=== PATIENT | male | born 1970 | race Caucasian/White ===

== ENCOUNTER 2018-08-11 14:04 | Emergency (ER) | payer BC, OTHER ==
--- NOTE | 2018-08-11 14:39 | ED ---
Chest Pain HPI - General Chief Complaint: Chest Pain Stated Complaint: Calf pain/Blood clots Time Seen by Provider: 08/11/18 14:37 Source: patient, RN notes reviewed, old records reviewed Mode of arrival: ambulatory Limitations: no limitations - History of Present Illness Initial Comments: This is a 48-year-old male. Recent medical history coming with left lower extremity pain. Patient states he has history of recent DVT and multiple blood thinners, patient also has recent history of CABG. Denies any chest pain currently no shortness of breath. Patient coming in for left lower extremity pain concern that he has recurrence of DVT or worse. MD Complaint: chest pain (Patient is without current chest pain), other ( Patient does have left lower Shorty pain and tingling that occurred twice prior to arrival) Onset: during rest Pain Radiation: none Severity: mild Quality: tightness Consistency: intermittent, now resolved Improves With: nothing Worsens With: nothing Treatments Prior to Arrival: none - Related Data Home Medications Medication Instructions Recorded Confirmed Multivitamin [Men's Multi-Vitamin] 1 tab PO DAILY 01/08/14 08/11/18 Metoprolol Tartrate [Lopressor] 12.5 mg PO BID 01/09/14 08/11/18 Apixaban [Eliquis] 5 mg PO BID 08/11/18 08/11/18 Ascorbic Acid [Vitamin C] 500 mg PO DAILY 08/11/18 08/11/18 Evolocumab [Repatha Syringe] 140 mg SQ Q14D 08/11/18 08/11/18 Folic Acid 1 mg PO DAILY@1200 08/11/18 08/11/18 Glucosamine-Chondr 500-400Mg 1 tab PO DAILY 08/11/18 08/11/18 [place]-3 Fatty Acids/Fish Oil [Fish 1 cap PO BID 08/11/18 08/11/18 Oil 1,000 mg Softgel] Pantoprazole Sodium [Protonix] 40 mg PO DAILY 08/11/18 08/11/18 Ranolazine [Ranexa] 500 mg PO BID 08/11/18 08/11/18 Rosuvastatin Calcium [Crestor] 20 mg PO HS 08/11/18 08/11/18 Sucralfate [Carafate] 1 gm PO AC-TID 08/11/18 08/11/18 Ticagrelor [Brilinta] 90 mg PO BID 08/11/18 08/11/18 amLODIPine [Norvasc] 5 mg PO DAILY 08/11/18 08/11/18 Allergies Allergy/AdvReac Type Severity Reaction Status Date / Time No Known Allergies Allergy Verified 08/11/18 14:45 Review of Systems ROS Statement: Those systems with pertinent positive or pertinent negative responses have been documented in the HPI. ROS Other: All systems not noted in ROS Statement are negative. EKG Findings - EKG Comments: EKG Findings:: EKG shows sinus bradycardia rate of 57 rate 142, QRS 90, QTc 44 Past Medical History Past Medical History: Coronary Artery Disease (CAD), Chest Pain / Angina, Hyperlipidemia, Myocardial Infarction ([place]) Additional Past Medical History / Comment(s): palpatations, Last Myocardial Infarction Date:: 12/2012 History of Any Multi-Drug Resistant Organisms: None Reported Past Surgical History: Coronary Bypass/CABG, Heart Catheterization With Stent Additional Past Surgical History / Comment(s): 12/08/12 CABG, fatty tumor removed rt arm Past Anesthesia/Blood Transfusion Reactions: No Reported Reaction Past Psychological History: No Psychological Hx Reported Smoking Status: Never smoker Past Alcohol Use History: Rare Past Drug Use History: None Reported - Past Family History Father Family Medical History: Coronary Artery Disease (CAD) Mother Family Medical History: Coronary Artery Disease (CAD) General Exam - General Exam Comments Initial Comments: Patient does have good dorsalis pedis and posterior tibialis pulses +2 Limitations: no limitations General appearance: alert, in no apparent distress Head exam: Present: atraumatic, normocephalic, normal inspection Eye exam: Present: normal appearance, PERRL, EOMI. Absent: scleral icterus, conjunctival injection, periorbital swelling ENT exam: Present: normal exam, mucous membranes moist Neck exam: Present: normal inspection. Absent: tenderness, meningismus, lymphadenopathy Respiratory exam: Present: normal lung sounds bilaterally. Absent: respiratory distress, wheezes, rales, rhonchi, stridor Cardiovascular Exam: Present: regular rate, normal rhythm, normal heart sounds. Absent: systolic murmur, diastolic murmur, rubs, gallop, clicks GI/Abdominal exam: Present: soft, normal bowel sounds. Absent: distended, tenderness, guarding, rebound, rigid Extremities exam: Present: normal inspection, full ROM, normal capillary refill. Absent: tenderness, pedal edema, joint swelling, calf tenderness Back exam: Present: normal inspection Neurological exam: Present: alert, oriented X3, CN II-XII intact Psychiatric exam: Present: normal affect, normal mood Skin exam: Present: warm, dry, intact, normal color. Absent: rash Course Vital Signs 08/11/18 08/11/18 08/11/18 14:10 14:58 16:00 Temperature 98.2 F Pulse Rate 58 L 54 L 52 L Respiratory 18 16 16 Rate Blood Pressure 136/90 126/80 115/72 O2 Sat by Pulse 97 97 97 Oximetry 08/11/18 17:48 Temperature 98.3 F Pulse Rate 53 L Respiratory 18 Rate Blood Pressure 118/78 O2 Sat by Pulse 97 Oximetry - Reevaluation(s) Reevaluation #1: Medical records reviewed, unable to obtain prior ultrasound from outside facility Reevaluation #2: Patient has not had any new pain, left ankle, calf pain has resolved. Chest Pain MDM - MDM 48 male the ER for evasive left lower Shorty pain, ultrasound negative for DVT. Patient can be discharged home Disposition Clinical Impression: Left leg pain Disposition: HOME SELF-CARE Condition: Good Instructions: Leg Pain (ED) Is patient prescribed a controlled substance at d/c from ED?: No Referrals: Nonstaff,Physician [REFERRING] - 1-2 days
[2018-08-11 15:02] LABS: Basophils # (A) 0.1 k/uL (0-0.2); Basophils % (A) 1 %; Eosinophils # (A) 0.2 k/uL (0-0.7); Eosinophils % (A) 4 %; HCT 43.1 % (39.0-53.0); HGB 14.4 gm/dL (13.0-17.5); Lymphocytes # (A) 2.1 k/uL (1.0-4.8); Lymphocytes % (A) 37 %; MCH 30.7 pg (25.0-35.0); MCHC 33.4 g/dL (31.0-37.0); Mean Platelet Volume 6.4; Monocytes # (A) 0.4 k/uL (0-1.0); Monocytes % (A) 7 %; Neutrophils # (A) 2.7 k/uL (1.3-7.7); Neutrophils % (A) 48 %; Platelet Count 209 k/uL (150-450); RBC 4.69 m/uL (4.30-5.90); RDW 12.6 % (11.5-15.5); WBC 5.5 k/uL (3.8-10.6)
[2018-08-11 15:06] LABS: Albumin 4.2 g/dL (3.5-5.0); Calcium 9.3 mg/dL (8.4-10.2); Potassium 4.6 mmol/L (3.5-5.1); Total Bilirubin 0.6 mg/dL (0.2-1.3); Total Protein 6.9 g/dL (6.3-8.2)
[2018-08-11 15:13] LABS: D-Dimer 0.18 mg/L FEU (<0.60); INR 0.9 (<1.2); Partial Thromboplastin Time 26.1 sec (22.0-30.0); Prothrombin Time 10.2 sec (9.0-12.0)
[2018-08-11 15:18] LABS: Creatine Kinase 105 U/L (55-170)
[2018-08-11 15:31] LABS: Creatine Kinase MB 0.5 ng/mL (0.0-2.4); Troponin I <0.012 ng/mL (0.000-0.034)
--- NOTE | 2018-08-11 15:32 | XR ---
EXAMINATION TYPE: XR chest 2V DATE OF EXAM: 08/11/2018 COMPARISON: Chest x-ray April 19, 2014. HISTORY: Chest pain. TECHNIQUE: Frontal and lateral views of the chest are obtained. FINDINGS: Post-CABG changes with mediastinal clips and sternal wires is redemonstrated. There is no f ocal air space opacity, pleural effusion, or pneumothorax seen. The cardiac silhouette size is withi n normal limits. The osseous structures are intact. IMPRESSION: Post CABG changes without acute pulmonary process. No significant change from prior.
--- NOTE | 2018-08-11 17:20 | US ---
EXAMINATION TYPE: US venous doppler duplex LE BI DATE OF EXAM: 08/11/2018 4:55 PM COMPARISON: NONE CLINICAL HISTORY: Pain. History of DVT right leg 07/20. Patient on blood thinner. Pain bilateral lowe r legs SIDE PERFORMED: Bilateral TECHNIQUE: The lower extremity deep venous system is examined utilizing real time linear array sonog marciano with graded compression, doppler sonography and color-flow sonography. VESSELS IMAGED: External Iliac Vein (EIV) Common Femoral Vein Deep Femoral Vein Greater Saphenous Vein * Femoral Vein Popliteal Vein Small Saphenous Vein * Proximal Calf Veins (* superficial vessels) Right Leg: No evidence of DVT as visualized Left Leg: No evidence of DVT as visualized IMPRESSION: Negative exam. No evidence of deep venous thrombosis in both legs.
[2018-08-11 17:49] VITALS: BP 118/78; PULSE 53; RESP 18; TEMP 98.3
== END 2018-08-11 17:48 | disposition home or self-care (01) ==
LOC: EC 14:04
DX: M79.605 Pain in left leg (principal); R07.9 Chest pain, unspecified; R20.2 Paresthesia of skin; I25.119 Atherosclerotic heart disease of native coronary artery with unspecified angina pectoris; I25.2 Old myocardial infarction; E78.5 Hyperlipidemia, unspecified; Z79.01 Long term (current) use of anticoagulants; Z79.899 Other long term (current) drug therapy; Z95.1 Presence of aortocoronary bypass graft; Z86.718 Personal history of other venous thrombosis and embolism
CPT/HCPCS: 36415; 71046; 80053; 82550; 82553; 83690; 83735; 84484; 85025; 85379; 85610; 85730; 93005; 93970; 99285

== ENCOUNTER 2021-03-04 11:17 | Observation (INO) | payer OTHER ==
[2021-03-04] MEDS ORDERED: NITROGLYCERIN OINT 1 INCH/GM PACKET TOPICAL STA (11:48)
[2021-03-04] MEDS ORDERED: ASPIRIN 81 MG PO STA (11:48)
--- NOTE | 2021-03-04 11:52 | ED ---
General Adult HPI - General Chief complaint: Chest Pain Stated complaint: Chest Pain Time Seen by Provider: 03/04/21 11:25 Source: patient, RN notes reviewed, old records reviewed Mode of arrival: EMS Limitations: no limitations - History of Present Illness Initial comments: Is a 50-year-old male who presents emergency Department stating that he's had a previous heart attack and has high cholesterol. Patient states she also strong family history of heart disease. Patient states he started having chest pain today that radiates to his back which is very similar to the chest pain he was experiencing when he had his first heart attack. Patient states this pain started at work and it was pretty significant at that time he denied any diaphoretic episodes he states he was mildly short of breath but he denied any nausea. Patient states the pain still going on now but much improved. Patient denies any headache patient denies any lightheadedness or dizziness. Patient denies any near syncopal episode. Patient denies any recent fever chills or cough per patient denies any abdominal pain patient with any back pain. Patient denies any nausea vomiting diarrhea. Patient denies any swelling to legs or calf tenderness. Patient states it is always bradycardic but now is on metoprolol also is even more bradycardic than normal which for him is not been a problem. - Related Data Home Medications Medication Instructions Recorded Confirmed Multivitamin [Men's Multi-Vitamin] 1 tab PO DAILY 01/08/14 03/04/21 Metoprolol Tartrate [Lopressor] 12.5 mg PO BID 01/09/14 03/04/21 Apixaban [Eliquis] 5 mg PO BID 08/11/18 03/04/21 Evolocumab [Repatha Syringe] 140 mg SQ Q14D 08/11/18 03/04/21 Glucosamine-Chondr 500-400Mg 1 tab PO DAILY 08/11/18 03/04/21 amLODIPine [Norvasc] 5 mg PO DAILY 08/11/18 03/04/21 Aspirin EC [Ecotrin Low Dose] 81 mg PO HS 03/04/21 03/04/21 Cetirizine HCl [Zyrtec] 10 mg PO Q48H 03/04/21 03/04/21 Clopidogrel Bisulfate [Plavix] 75 mg PO DAILY 03/04/21 03/04/21 Nitroglycerin Sl Tabs [Nitrostat] 0.4 mg SL Q5M PRN 03/04/21 03/04/21 Omeprazole 40 mg PO DAILY 03/04/21 03/04/21 Ranolazine [Ranexa] 1,000 mg PO BID 03/04/21 03/04/21 Allergies Allergy/AdvReac Type Severity Reaction Status Date / Time No Known Allergies Allergy Verified 03/04/21 14:04 Review of Systems ROS Statement: Those systems with pertinent positive or pertinent negative responses have been documented in the HPI. ROS Other: All systems not noted in ROS Statement are negative. Past Medical History Past Medical History: Coronary Artery Disease (CAD), Chest Pain / Angina, Hyperlipidemia, Myocardial Infarction ([place]) Additional Past Medical History / Comment(s): palpatations, Last Myocardial Infarction Date:: 12/2012 History of Any Multi-Drug Resistant Organisms: None Reported Past Surgical History: Coronary Bypass/CABG, Heart Catheterization With Stent Additional Past Surgical History / Comment(s): 12/08/12 CABG, fatty tumor removed rt arm Past Anesthesia/Blood Transfusion Reactions: No Reported Reaction Past Psychological History: No Psychological Hx Reported Smoking Status: Never smoker Past Alcohol Use History: Rare Past Drug Use History: None Reported - Past Family History Father Family Medical History: Coronary Artery Disease (CAD) Mother Family Medical History: Coronary Artery Disease (CAD) General Exam - General Exam Comments Initial Comments: GENERAL: Patient is well-developed and well-nourished. Patient is nontoxic and well- hydrated and is in mild distress. ENT: Neck is soft and supple. No significant lymphadenopathy is noted. Oropharynx is clear. Moist mucous membranes. Neck has full range of motion without elici ting any pain. EYES: The sclera were anicteric and conjunctiva were pink and moist. Extraocular m ovements were intact and pupils were equal round and reactive to light. Eyelids were unremarkable. PULMONARY: Unlabored respirations. Good breath sounds bilaterally. No audible rales rhonchi or wheezing was noted. CARDIOVASCULAR: There is a regular rate and rhythm without any murmurs gallops or rubs. ABDOMEN: Soft and nontender with normal bowel sounds. SKIN: Skin is clear with no lesions or rashes and otherwise unremarkable. NEUROLOGIC: Patient is alert and oriented x3. Cranial nerves II through XII are grossly intact. Motor and sensory are also intact. Normal speech, volume and content. Symmetrical smile. MUSCULOSKELETAL: Normal extremities with adequate strength and full range of motion. No lower extremity swelling or edema. No calf tenderness. LYMPHATICS: No significant lymphadenopathy is noted PSYCHIATRIC: Normal psychiatric evaluation. 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 Patient's EKG shows no ST segment elevation or depression. Patient got aspirin and Nitropaste to the emergency department he stated that the Nitropaste seem to have taken away the rest of the chest pain. Because this patient's unstable angina picture I started patient on heparin. I spoke with the [facility] hospitalist and spoke and they agreed to admit the patient admitted the patient I continue aspirin heparin Nitropaste on the floor. I consult cardiology. - Lab Data Result diagrams: 03/04/21 12:00 03/04/21 12:00 Lab Results 03/04/21 03/04/21 03/04/21 Range/Units 12:00 12:00 12:00 WBC 5.5 (3.8-10.6) k/uL RBC 4.46 (4.30-5.90) m/uL Hgb 14.8 (13.0-17.5) gm/dL Hct 42.4 (39.0-53.0) % MCV 95.1 (80.0-100.0) fL MCH 33.3 (25.0-35.0) pg MCHC 35.0 (31.0-37.0) g/dL RDW 12.6 (11.5-15.5) % Plt Count 180 (150-450) k/uL MPV 7.3 Neutrophils % 53 % Lymphocytes % 34 % Monocytes % 7 % Eosinophils % 3 % Basophils % 1 % Neutrophils # 2.9 (1.3-7.7) k/uL Lymphocytes # 1.9 (1.0-4.8) k/uL Monocytes # 0.4 (0-1.0) k/uL Eosinophils # 0.2 (0-0.7) k/uL Basophils # 0.0 (0-0.2) k/uL PT 11.2 (9.0-12.0) sec INR 1.1 (<1.2) APTT 26.6 (22.0-30.0) sec Sodium 137 (137-145) mmol/L Potassium 4.2 (3.5-5.1) mmol/L Chloride 107 (98-107) mmol/L Carbon Dioxide 22 (22-30) mmol/L Anion Gap 8 mmol/L BUN 14 (9-20) mg/dL Creatinine 1.09 (0.66-1.25) mg/dL Est GFR (CKD-EPI)AfAm >90 (>60 ml/min/1.73 sqM) Est GFR (CKD-EPI)NonAf 79 (>60 ml/min/1.73 sqM) Glucose 108 H (74-99) mg/dL Calcium 9.3 (8.4-10.2) mg/dL Magnesium 1.8 (1.6-2.3) mg/dL Total Bilirubin 0.3 (0.2-1.3) mg/dL AST 23 (17-59) U/L ALT 19 (4-49) U/L Alkaline Phosphatase 53 (38-126) U/L Troponin I (0.000-0.034) ng/mL Total Protein 6.4 (6.3-8.2) g/dL Albumin 3.8 (3.5-5.0) g/dL 03/04/21 Range/Units 12:00 WBC (3.8-10.6) k/uL RBC (4.30-5.90) m/uL Hgb (13.0-17.5) gm/dL Hct (39.0-53.0) % MCV (80.0-100.0) fL MCH (25.0-35.0) pg MCHC (31.0-37.0) g/dL RDW (11.5-15.5) % Plt Count (150-450) k/uL MPV Neutrophils % % Lymphocytes % % Monocytes % % Eosinophils % % Basophils % % Neutrophils # (1.3-7.7) k/uL Lymphocytes # (1.0-4.8) k/uL Monocytes # (0-1.0) k/uL Eosinophils # (0-0.7) k/uL Basophils # (0-0.2) k/uL PT (9.0-12.0) sec INR (<1.2) APTT (22.0-30.0) sec Sodium (137-145) mmol/L Potassium (3.5-5.1) mmol/L Chloride (98-107) mmol/L Carbon Dioxide (22-30) mmol/L Anion Gap mmol/L BUN (9-20) mg/dL Creatinine (0.66-1.25) mg/dL Est GFR (CKD-EPI)AfAm (>60 ml/min/1.73 sqM) Est GFR (CKD-EPI)NonAf (>60 ml/min/1.73 sqM) Glucose (74-99) mg/dL Calcium (8.4-10.2) mg/dL Magnesium (1.6-2.3) mg/dL Total Bilirubin (0.2-1.3) mg/dL AST (17-59) U/L ALT (4-49) U/L Alkaline Phosphatase (38-126) U/L Troponin I <0.012 (0.000-0.034) ng/mL Total Protein (6.3-8.2) g/dL Albumin (3.5-5.0) g/dL Critical Care Time Critical Care Time: Yes Total Critical Care Time: 35 Disposition Clinical Impression: Unstable angina pectoris Disposition: ADMITTED IP TO THIS [facility] Referrals: Nonstaff,Physician [REFERRING] - 1-2 days Time of Disposition: 14:11
[2021-03-04] MEDS ORDERED: IBUPROFEN 600 MG TAB PO STA (12:01)
[2021-03-04] MEDS ORDERED: ACETAMINOPHEN TAB 500 MG TAB PO STA (12:01)
[2021-03-04 12:13] LABS: Basophils % (A) 1 %; Eosinophils # (A) 0.2 k/uL (0-0.7); Eosinophils % (A) 3 %; HCT 42.4 % (39.0-53.0); HGB 14.8 gm/dL (13.0-17.5); Lymphocytes # (A) 1.9 k/uL (1.0-4.8); Lymphocytes % (A) 34 %; MCH 33.3 pg (25.0-35.0); MCV 95.1 fL (80.0-100.0); Mean Platelet Volume 7.3; Monocytes # (A) 0.4 k/uL (0-1.0); Monocytes % (A) 7 %; Neutrophils # (A) 2.9 k/uL (1.3-7.7); Neutrophils % (A) 53 %; Platelet Count 180 k/uL (150-450); RBC 4.46 m/uL (4.30-5.90); RDW 12.6 % (11.5-15.5); WBC 5.5 k/uL (3.8-10.6)
[2021-03-04 12:22] LABS: ALT 19 U/L (4-49); AST 23 U/L (17-59); African American GFR (CKD) >90 (>60 ml/min/1.73 sqM); Albumin 3.8 g/dL (3.5-5.0); Alkaline Phosphatase 53 U/L (38-126); Anion Gap 8 mmol/L; Blood Urea Nitrogen 14 mg/dL (9-20); Calcium 9.3 mg/dL (8.4-10.2); Carbon Dioxide 22 mmol/L (22-30); Chloride 107 mmol/L (98-107); Glucose 108 mg/dL (74-99); Magnesium 1.8 mg/dL (1.6-2.3); Non-African American GFR(CKD) 79 (>60 ml/min/1.73 sqM); Potassium 4.2 mmol/L (3.5-5.1); Sodium 137 mmol/L (137-145); Total Bilirubin 0.3 mg/dL (0.2-1.3); Total Protein 6.4 g/dL (6.3-8.2)
[2021-03-04 12:46] LABS: INR 1.1 (<1.2); Partial Thromboplastin Time 26.6 sec (22.0-30.0); Prothrombin Time 11.2 sec (9.0-12.0)
--- NOTE | 2021-03-04 13:57 | XR ---
EXAMINATION TYPE: XR chest 2V DATE OF EXAM: 03/04/2021 COMPARISON: 08/11/2018 HISTORY: 50-year-old male with chest pain TECHNIQUE: PA and lateral views FINDINGS: Median sternotomy wires with postoperative clips in the sternum. A coronary artery stent is noted. Th e cardiomediastinal silhouette, aorta, and pulmonary vasculature are within normal limits. Lungs and pleural spaces are clear. IMPRESSION: No acute cardiopulmonary process.
[2021-03-04] MEDS ORDERED: HEPARIN SODIUM 1,000 UN/ML (10ML VL) IV ONE (14:09)
[2021-03-04] MEDS ORDERED: NITROGLYCERIN SL TABS 0.4 MG TAB SUBLINGUAL PRN (14:13)
--- NOTE | 2021-03-04 14:56 | P.HPIM ---
History of Present Illness This is a pleasant 50 is old male with past medical history for significant coronary artery disease status post CABG and 4 stents, last stent was 1.5 years ago. Hyperlipidemia, his juvenile detention officer is Dr. Phani Mauricio , and his PCP is Dr. Yesenia Mcintosh. 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 He denies any dyspnea, no coughing. No dizziness or sweating. No GI or urinary symptoms. Like no diarrhea or nausea vomiting. No abdominal pain. No dysuria Alcohol or illicit drugs. Occasional drinking Vitas looks stable with temperature 97.4, slightly bradycardic at 46, blood pressure 118/73 EKG showing sinus bradycardia at [address]-T changes Labs including CBC, BMP, liver enzymes and INR are unremarkable. Troponin 1 is negative with less than 0.012. Patient states that he took his medication this morning include an aspirin Emergency room he received aspirin 324 mg 1, ibuprofen, Tylenol, and started on heparin drip Review of Systems CONSTITUTIONAL: No fever, no malaise, no fatigue. HEENT: No recent visual problems or hearing problems. Denied any sore throat. CARDIOVASCULAR: No orthopnea, PND, no palpitations, no syncope. PULMONARY: No shortness of breath, no cough, no hemoptysis. GASTROINTESTINAL: No diarrhea, no nausea, no vomiting, no abdominal pain. Normoactive bowel sounds. NEUROLOGICAL: No headaches, no weakness, no numbness. HEMATOLOGICAL: Denies any bleeding or petechiae. GENITOURINARY: Denies any burning micturition, frequency, or urgency. MUSCULOSKELETAL/RHEUMATOLOGICAL: Denies any joint pain, swelling, or any muscle pain. ENDOCRINE: Denies any polyuria or polydipsia. Past Medical History Past Medical History: Coronary Artery Disease (CAD), Chest Pain / Angina, Hyperlipidemia, Myocardial Infarction ([place]) Additional Past Medical History / Comment(s): palpatations, Last Myocardial Infarction Date:: 12/2012 History of Any Multi-Drug Resistant Organisms: None Reported Past Surgical History: Coronary Bypass/CABG, Heart Catheterization With Stent Additional Past Surgical History / Comment(s): 12/08/12 CABG, fatty tumor removed rt arm Past Anesthesia/Blood Transfusion Reactions: No Reported Reaction Past Psychological History: No Psychological Hx Reported Smoking Status: Never smoker Past Alcohol Use History: Rare Past Drug Use History: None Reported - Past Family History Father Family Medical History: Coronary Artery Disease (CAD) Mother Family Medical History: Coronary Artery Disease (CAD) Medications and Allergies Home Medications Medication Instructions Recorded Confirmed Type Multivitamin [Men's Multi-Vitamin] 1 tab PO DAILY 01/08/14 03/04/21 History Metoprolol Tartrate [Lopressor] 12.5 mg PO BID 01/09/14 03/04/21 History Apixaban [Eliquis] 5 mg PO BID 08/11/18 03/04/21 History Evolocumab [Repatha Syringe] 140 mg SQ Q14D 08/11/18 03/04/21 History Glucosamine-Chondr 500-400Mg 1 tab PO DAILY 08/11/18 03/04/21 History amLODIPine [Norvasc] 5 mg PO DAILY 08/11/18 03/04/21 History Aspirin EC [Ecotrin Low Dose] 81 mg PO HS 03/04/21 03/04/21 History Cetirizine HCl [Zyrtec] 10 mg PO Q48H 03/04/21 03/04/21 History Clopidogrel Bisulfate [Plavix] 75 mg PO DAILY 03/04/21 03/04/21 History Nitroglycerin Sl Tabs [Nitrostat] 0.4 mg SL Q5M PRN 03/04/21 03/04/21 History Omeprazole 40 mg PO DAILY 03/04/21 03/04/21 History Ranolazine [Ranexa] 1,000 mg PO BID 03/04/21 03/04/21 History Allergies Allergy/AdvReac Type Severity Reaction Status Date / Time No Known Allergies Allergy Verified 03/04/21 14:04 Physical Exam Vitals: Vital Signs Temp Pulse Pulse Resp BP Pulse Ox 03/04/21 11:30 46 L 03/04/21 11:26 97.4 F L 46 L 18 118/73 95 Intake and Output 03/03/21 03/04/21 03/04/21 22:59 06:59 14:59 Other: Weight 95.254 kg GENERAL: The patient is alert and oriented x3, not in any acute distress. Well developed, well nourished. HEENT: Pupils are round and equally reacting to light. EOMI. No scleral icterus. No conjunctival pallor. Normocephalic, atraumatic. No pharyngeal erythema. No thyromegaly. CARDIOVASCULAR: S1 and S2 present. No murmurs, rubs, or gallops. PULMONARY: Chest is clear to auscultation, no wheezing or crackles. ABDOMEN: Soft, nontender, nondistended, normoactive bowel sounds. No palpable organomegaly. MUSCULOSKELETAL: No joint swelling or deformity. EXTREMITIES: No cyanosis, clubbing, or pedal edema. NEUROLOGICAL: Gross neurological examination did not reveal any focal deficits. SKIN: No rashes. No petechiae Results CBC & Chem 7: 03/04/21 12:00 03/04/21 12:00 Labs: Abnormal Lab Results - Last 24 Hours (Table) 03/04/21 Range/Units 12:00 Glucose 108 H (74-99) mg/dL Assessment and Plan Assessment: Chest pain, rule out cardiac causes History of extensive coronary artery disease status post CABG in 4 stents Hyperlipidemia Plan: This is a pleasant 50 years old male who presents with chest pain. We'll do serial troponins. Cardiology consult. Continue with aspirin and Plavix Continue with heparin drip, hold home dose of Eliquis Labs and medication were reviewed.. Continue same treatment. Continue with symptomatic treatment. Resume home medication. Monitor lytes and vitals. DVT and GI prophylaxis. Further recommendations depends on the clinical course of the patient DVT prophylaxis: Heparin GI Prophylaxis: Pepcid Prognosis is guarded
[2021-03-04] MEDS: HEPARIN SOD,PORK IN 0.45% NACL 25,000 UNIT in 0.45% NACL 1 250ML.BAG IV SCH (15:09)
[2021-03-04] MEDS: NITROGLYCERIN OINT 1 INCH/GM PACKET TOPICAL SCH (18:02)
[2021-03-04] MEDS ORDERED: ACETAMINOPHEN TAB 325 MG TAB PO PRN (18:06)
[2021-03-04] MEDS: ASPIRIN 81 MG PO SCH (20:47)
[2021-03-04] MEDS: FAMOTIDINE 20 MG/2 ML VIAL IV SCH (20:47)
[2021-03-04] MEDS ORDERED: APIXABAN 5 MG TAB PO SCH (21:00)
[2021-03-04] MEDS ORDERED: RANOLAZINE 500 MG TAB.ER.12H PO SCH (21:00)
[2021-03-04] MEDS ORDERED: METOPROLOL TARTRATE 12.5 MG TAB PO SCH (21:00)
[2021-03-04] MEDS ORDERED: HEPARIN SODIUM 1,000 UN/ML (10ML VL) IV PRN (22:27)
[2021-03-05] MEDS: NITROGLYCERIN OINT 1 INCH/GM PACKET TOPICAL SCH ×2 (00:40→05:55)
[2021-03-05] MEDS: FAMOTIDINE 20 MG/2 ML VIAL IV SCH ×2 (08:20→21:09)
[2021-03-05] MEDS: PANTOPRAZOLE 40 MG TABLET PO SCH (08:20)
[2021-03-05] MEDS: amLODIPine 5 MG TAB PO SCH (08:20)
[2021-03-05] MEDS: MULTIVITAMINS, THERA 1 EACH TAB PO SCH (08:20)
[2021-03-05] MEDS: CLOPIDOGREL 75 MG TAB PO SCH (08:20)
[2021-03-05] MEDS ORDERED: ASPIRIN 325 MG TAB PO SCH (09:00)
[2021-03-05] MEDS ORDERED: NON FORMULARY DRUG (Glucosamine-Chondr 500-400mg 1 EACH Each) PO SCH (09:00)
--- NOTE | 2021-03-05 10:00 | P.CRDCN ---
History of Present Illness Consult date: 03/05/21 History of present illness: HISTORY OF PRESENT ILLNESS: This is a 50-year-old male with a past medical history significant for hyperlipidemia, hypertension, coronary artery disease with previous CABG 4 in 2012 and subsequent stenting 4. Patient believes his last stent was approximately 1.5 years ago. Patient follows with Dr. Phani Cook in [facility]. We have been asked to see the patient in consultation for chest pain. Patient examined at the bedside. Patient states yesterday morning he was at work sitting at his desk when he began to have chest pain. He states the pain was in the middle of his chest and felt like an intense burning sensation. He states the pain went into the middle of his back. He denied any radiation down his arm. He denied feeling short of breath. He denied nausea or vomiting. He denied feeling diaphoretic. Patient states he had one nitro on him which he took which relieved his pain for a short time and then the pain began to come back. He states he took some antacids which helped a little bit but his pain persisted so he came to the emergency room. The patient also reports having another bout of chest pain last night. At the time of my examination he denies chest pain or pressure. The patient is prescribed Eliquis on an outpatient basis. The patient states he has a history of DVT but he denies any history of atrial fibrillation. EKG reveals sinus mechanism with nonspecific ST-T wave changes. No signs of acute ischemia. Chest xray negative for acute process Laboratory data: WBC 5.5. Hemoglobin 14.8. Platelet count 180. Sodium 137. Potassium 4.2. BUN 14. Creatinine 1.09. Magnesium 1.8. Troponin negative 3. Current home cardiac medications include amlodipine 5 mg daily, aspirin 81 mg daily, Ranexa 1000 g twice a day, Repatha 140mg of cutaneous every 14 days, metoprolol tartrate 12.5 mg twice a day, Plavix 75 mg daily, and Eliquis 5 mg twice a day Patient underwent CABG [address] Dahl with GARCIA to LAD, radial artery to second obtuse marginal, saphenous vein graft to diagonal and saphenous vein graft to obtuse marginal #1 with venoveno from the diagonal to the obtuse marginal vein graft REVIEW OF SYSTEMS: At the time of my exam: CONSTITUTIONAL: Denies fever or chills. HEENT: Denies blurred vision, vision changes, or eye pain. Denies hemoptysis CARDIOVASCULAR: Denies chest pain. Denies orthopnea. Denies PND. Denies palpitations RESPIRATORY: Denies shortness of breath. GASTROINTESTINAL: Denies abdominal pain. Denies nausea or vomiting. HEMATOLOGIC: Denies bleeding disorders. GENITOURINARY: Denies any blood in urine. SKIN: Denies pruitis. Denies rash. PHYSICAL EXAM: VITAL SIGNS: Reviewed. GENERAL: Well-developed in no acute distress. HEENT: Head is normocephalic. Pupils are equal, round. Sclerae anicteric. Mucous membranes of the mouth are moist. Neck supple. No JVD or thyromegaly LUNGS: Respirations even and unlabored. Lungs essentially clear to auscultation bilaterally. HEART: Regular rate and rhythm. S1 and S2 heard. ABDOMEN: Soft. Nondistended. Nontender. EXTREMITIES: Normal range of motion. No clubbing or cyanosis. Peripheral pulses intact. No lower extremity edema NEUROLOGIC: Awake and alert. Oriented x 3. ASSESSMENT: Chest pain Coronary artery disease with previous CABG 4 in 2012 with subsequent stenting 4 Hypertension Hyperlipidemia History of DVT, on anticoagulation with Eliquis PLAN: Obtain 2D echo to assess cardiac structure and function Resume home cardiac medications Continue IV heparin Recommend cardiac cath. Patient will get in touch with his primary global account executive and make a decision whether to have procedure performed here or at an outside facility with his primary global account executive Further recommendations pending patient course Nurse practitioner note has been reviewed by physician. Signing provider agrees with the documented findings, assessment, and plan of care. Past Medical History Past Medical History: Coronary Artery Disease (CAD), Chest Pain / Angina, Hyperlipidemia, Myocardial Infarction (PA) Additional Past Medical History / Comment(s): palpatations, Last Myocardial Infarction Date:: 12/2012 History of Any Multi-Drug Resistant Organisms: None Reported Past Surgical History: Coronary Bypass/CABG, Heart Catheterization With Stent Additional Past Surgical History / Comment(s): 12/08/12 CABG, fatty tumor removed rt arm Past Anesthesia/Blood Transfusion Reactions: No Reported Reaction Date of Last Stent Placement:: 2018 Past Psychological History: No Psychological Hx Reported Smoking Status: Never smoker Past Alcohol Use History: Rare Past Drug Use History: None Reported - Past Family History Father Family Medical History: Coronary Artery Disease (CAD) Mother Family Medical History: Coronary Artery Disease (CAD) Medications and Allergies Home Medications Medication Instructions Recorded Confirmed Type Multivitamin [Men's Multi-Vitamin] 1 tab PO DAILY 01/08/14 03/04/21 History Metoprolol Tartrate [Lopressor] 12.5 mg PO BID 01/09/14 03/04/21 History Apixaban [Eliquis] 5 mg PO BID 08/11/18 03/04/21 History Evolocumab [Repatha Syringe] 140 mg SQ Q14D 08/11/18 03/04/21 History Glucosamine-Chondr 500-400Mg 1 tab PO DAILY 08/11/18 03/04/21 History amLODIPine [Norvasc] 5 mg PO DAILY 08/11/18 03/04/21 History Aspirin EC [Ecotrin Low Dose] 81 mg PO HS 03/04/21 03/04/21 History Cetirizine HCl [Zyrtec] 10 mg PO Q48H 03/04/21 03/04/21 History Clopidogrel Bisulfate [Plavix] 75 mg PO DAILY 03/04/21 03/04/21 History Nitroglycerin Sl Tabs [Nitrostat] 0.4 mg SL Q5M PRN 03/04/21 03/04/21 History Omeprazole 40 mg PO DAILY 03/04/21 03/04/21 History Ranolazine [Ranexa] 1,000 mg PO BID 03/04/21 03/04/21 History Allergies Allergy/AdvReac Type Severity Reaction Status Date / Time No Known Allergies Allergy Verified 03/04/21 14:04 Physical Exam Vitals: Vital Signs Temp Pulse Pulse Pulse Pulse Resp BP 03/05/21 07:00 97.8 F 59 L 16 03/05/21 02:00 47 L 03/05/21 01:59 98.0 F 56 L 16 03/04/21 20:00 54 L 03/04/21 19:22 98.5 F 54 L 16 03/04/21 15:47 98.1 F 49 L 16 03/04/21 15:10 98.0 F 51 L 18 104/75 03/04/21 14:13 03/04/21 11:30 46 L 03/04/21 11:26 97.4 F L 46 L 18 118/73 BP Pulse Ox 03/05/21 07:00 114/64 96 03/05/21 02:00 03/05/21 01:59 109/67 96 03/04/21 20:00 03/04/21 19:22 120/66 94 L 03/04/21 15:47 119/78 98 03/04/21 15:10 99 03/04/21 14:13 98 03/04/21 11:30 03/04/21 11:26 95 Intake and Output 03/04/21 03/05/21 03/05/21 22:59 06:59 14:59 Intake Total 72.333 Balance 72.333 Intake: Intake, IV Titration 72.333 Amount Heparin Sod,Pork in 0.45% 72.333 NaCl 25,000 unit In 0.45 % NaCl 1 250ml.bag @ 10. 498 UNITS/KG/HR 10 mls/hr IV .Q24H [facility] Rx#: [id number] Other: Voiding Method Toilet # Voids 1 Results 03/04/21 12:00 03/04/21 12:00 Cardiac Enzymes 03/04/21 03/04/21 03/04/21 Range/Units 12:00 12:00 15:22 AST 23 (17-59) U/L Troponin I <0.012 <0.012 (0.000-0.034) ng/mL 03/04/21 Range/Units 18:11 AST (17-59) U/L Troponin I <0.012 (0.000-0.034) ng/mL Coagulation 03/04/21 03/04/21 03/05/21 Range/Units 12:00 20:44 04:46 PT 11.2 (9.0-12.0) sec APTT 26.6 39.1 H 50.7 H (22.0-30.0) sec CBC 03/04/21 Range/Units 12:00 WBC 5.5 (3.8-10.6) k/uL RBC 4.46 (4.30-5.90) m/uL Hgb 14.8 (13.0-17.5) gm/dL Hct 42.4 (39.0-53.0) % Plt Count 180 (150-450) k/uL Comprehensive Metabolic Panel 03/04/21 Range/Units 12:00 Sodium 137 (137-145) mmol/L Potassium 4.2 (3.5-5.1) mmol/L Chloride 107 (98-107) mmol/L Carbon Dioxide 22 (22-30) mmol/L BUN 14 (9-20) mg/dL Creatinine 1.09 (0.66-1.25) mg/dL Glucose 108 H (74-99) mg/dL Calcium 9.3 (8.4-10.2) mg/dL AST 23 (17-59) U/L ALT 19 (4-49) U/L Alkaline Phosphatase 53 (38-126) U/L Total Protein 6.4 (6.3-8.2) g/dL Albumin 3.8 (3.5-5.0) g/dL Current Medications Generic Name Dose Route Start Last Admin Trade Name Freq PRN Reason Stop Dose Admin Acetaminophen 650 mg 03/04/21 18:06 Acetaminophen Tab 325 Mg Tab PO Q6HR PRN Fever and/ or Pain Amlodipine Besylate 5 mg 03/05/21 09:00 Amlodipine 5 Mg Tab PO DAILY [facility] Aspirin 81 mg 03/04/21 21:00 03/04/21 20:47 Aspirin 81 Mg PO 81 mg HS [facility] Administration Clopidogrel Bisulfate 75 mg 03/05/21 09:00 Clopidogrel 75 Mg Tab PO DAILY [facility] Famotidine 20 mg 03/04/21 21:00 03/04/21 20:47 Famotidine 20 Mg/2 Ml Vial IV 20 mg Q12HR [facility] Administration Heparin Sodium (Porcine) 0 unit 03/04/21 22:27 03/04/21 22:50 Heparin Sodium 1,000 Un/Ml (10ml Vl) IV 2,381.25 unit PER PROTOCOL PRN Administration Low PTT Protocol Heparin Sodium/Sodium Chloride 250 mls @ 10 mls/hr 03/04/21 14:15 03/04/21 22:23 25,000 unit/ Sodium Chloride IV 12.498 units/kg/hr .Q24H [facility] 11.905 mls/hr Titration Protocol 10.498 UNITS/KG/HR Multivitamins 1 each 03/05/21 09:00 Multivitamins, Thera 1 Each Tab PO DAILY [facility] Nitroglycerin 0.4 mg 03/04/21 14:13 Nitroglycerin Sl Tabs 0.4 Mg Tab SUBLINGUAL Q5M PRN Chest Pain Nitroglycerin 1 inch 03/04/21 18:00 08/03/21 05:55 Nitroglycerin Oint 1 Inch/Gm Packet TOPICAL Not Given Q6HR [facility] Pantoprazole Sodium 40 mg 03/05/21 09:00 Pantoprazole 40 Mg Tablet PO DAILY [facility] Intake and Output 03/04/21 03/05/21 03/05/21 22:59 06:59 14:59 Intake Total 72.333 Balance 72.333 Intake: Intake, IV Titration 72.333 Amount Heparin Sod,Pork in 0.45% 72.333 NaCl 25,000 unit In 0.45 % NaCl 1 250ml.bag @ 10. 498 UNITS/KG/HR 10 mls/hr IV .Q24H [facility] Rx#: [id number] Other: Voiding Method Toilet # Voids 1 03/04/21 12:00 03/04/21 12:00
[2021-03-05] MEDS: RANOLAZINE 500 MG TAB.ER.12H PO SCH ×2 (10:37→21:09)
[2021-03-05] MEDS: ISOSORBIDE MONONITRATE ER 30 MG TAB.ER.24H PO SCH (10:38)
--- NOTE | 2021-03-05 11:17 | ECHOF ---
Referral Reason:chest pain MEASUREMENTS -------- HEIGHT: 180.3 cm WEIGHT: 95.3 kg BP: RVIDd: 2.9 cm (< 3.3) IVSd: 1.0 cm (0.6 - 1.1) LVIDd: 4.7 cm (3.9 - 5.3) LVPWd: 1.0 cm (0.6 - 1.1) IVSs: 1.9 cm LVIDs: 1.9 cm LVPWs: 1.4 cm LAESV Index (A-L): 25.48 ml/m Ao Diam: 3.3 cm (2.0 - 3.7) AV Cusp: 2.5 cm (1.5 - 2.6) LA Diam: 3.2 cm (2.7 - 3.8) MV EXCURSION: 19.783 mm (> 18.000) MV EF SLOPE: 191 mm/s (70 - 150) EPSS: 0.4 cm MV E Jesus: 0.58 m/s MV DecT: 230 ms MV A Jesus: 0.49 m/s MV E/A Ratio: 1.18 RAP: 5.00 mmHg RVSP: 9.79 mmHg FINDINGS -------- Sinus rhythm. This was a technically good study. The left ventricular size is normal. Left ventricular wall thickness is normal. Overall left vent ricular systolic function is normal with, an EF between 55 - 60 %. The diastolic filling pattern is normal for the age of the patient 7.21. The right ventricle is normal in size. Normal LA size by volume 22+/-6 ml/m2. The right atrial size is normal. The aortic valve is trileaflet, and appears structurally normal. No aortic stenosis or regurgitation. The mitral valve is normal. Mild mitral regurgitation is present. The tricuspid valve appears structurally normal. Mild tricuspid regurgitation present. Right vent ricular systolic pressure is normal at < 35 mmHg. There is no pulmonic regurgitation present. The aortic root size is normal. Normal inferior vena cava with normal inspiratory collapse consistent with estimated right atrial pre ssure of 5 mmHg. There is no pericardial effusion. CONCLUSIONS -------- 1. Left ventricular wall thickness is normal. 2. Overall left ventricular systolic function is normal with, an EF between 55 - 60 %. 3. Normal LA size by volume 22+/-6 ml/m2. 4. The aortic valve is trileaflet, and appears structurally normal. No aortic stenosis or regurgitati on. 5. Mild mitral regurgitation is present. 6. Mild tricuspid regurgitation present. 7. There is no pericardial effusion. PHARMACIST HOSPITAL: Brittany Renteria RDCS
[2021-03-05] MEDS ORDERED: NITROGLYCERIN SL TABS 0.4 MG TAB SUBLINGUAL PRN (11:24)
[2021-03-05] MEDS ORDERED: ALPRAZolam 0.5 MG TAB PO PRN (11:24)
[2021-03-05] MEDS ORDERED: ALPRAZolam 0.25 MG TAB PO PRN (11:24)
[2021-03-05 12:09] LABS: Chol/HDL Ratio 3.49; LDL Cholesterol,Calculated 63.4 mg/dL (0.0-131.0); VLDL Calculation 23.6 mg/dL (5.00-40.00)
--- NOTE | 2021-03-05 13:59 | P.PN ---
Subjective This is a pleasant 50 is old male with past medical history for significant coronary artery disease status post CABG and 4 stents, last stent was 1.5 years ago. Hyperlipidemia, his zyglo inspector is Dr. Phani Mauricio , and his PCP is Dr. Yesenia Mcintosh. 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 He denies any dyspnea, no coughing. No dizziness or sweating. No GI or urinary symptoms. Like no diarrhea or nausea vomiting. No abdominal pain. No dysuria Alcohol or illicit drugs. Occasional drinking Vitas looks stable with temperature 97.4, slightly bradycardic at 46, blood pressure 118/73 EKG showing sinus bradycardia at [address]-T changes Labs including CBC, BMP, liver enzymes and INR are unremarkable. Troponin 1 is negative with less than 0.012. Patient states that he took his medication this morning include an aspirin Emergency room he received aspirin 324 mg 1, ibuprofen, Tylenol, and started on heparin drip 03/05/2021 Patient with better chest pain today down to 3/10 in severity and he feels better than yesterday. No other new complaints. Hemodynamics and vital signs stable, I'll is on hold. Cardiogram showed ejection fraction of 55-60% On heparin drip as well as aspirin and Plavix, ranexa has been resumed by cardiology team Exceptional Student Education Teacher [facility] per my discussion with the case liner they did not accept the patient because his on observation status and he does not qualify for inpatient admission for now. B closure contacted our zyglo inspector team ordered a now planning to do cardiac cath for him tomorrow. Patient was informed and he does not want to be transferred at his expense as well Objective - Vital Signs Vital signs: Vital Signs Temp 97.8 F 03/05/21 07:00 Pulse 59 L 03/05/21 07:00 Resp 18 03/05/21 08:00 BP 114/64 03/05/21 07:00 Pulse Ox 96 03/05/21 07:00 Intake & Output 03/04/21 03/05/21 03/05/21 18:59 06:59 18:59 Intake Total 72.333 Balance 72.333 Weight 95.254 kg Intake: Intake, IV Titration 72.333 Amount Heparin Sod,Pork in 0.45% 72.333 NaCl 25,000 unit In 0.45 % NaCl 1 250ml.bag @ 10. 498 UNITS/KG/HR 10 mls/hr IV .Q24H [facility] Rx#: [id number] Other: Voiding Method Toilet # Voids 1 - Labs CBC & Chem 7: 03/04/21 12:00 03/04/21 12:00 Labs: Abnormal Lab Results - Last 24 Hours (Table) 03/04/21 03/05/21 03/05/21 Range/Units 20:44 04:46 04:46 APTT 39.1 H 50.7 H (22.0-30.0) sec HDL Cholesterol 35.0 L (40.0-60.0) mg/dL Assessment and Plan Assessment: Chest pain, rule out cardiac causes History of extensive coronary artery disease status post CABG in 4 stents Hyperlipidemia Plan: This is a pleasant 50 years old male who presents with chest pain. We'll do serial troponins. Cardiology consult. Continue with aspirin and Plavix Continue with heparin drip, hold home dose of Eliquis cardiology team are plann ing for cardiac cath tomorrow Labs and medication were reviewed.. Continue same treatment. Continue with symptomatic treatment. Resume home medication. Monitor lytes and vitals. DVT and GI prophylaxis. Further recommendations depends on the clinical course of the patient DVT prophylaxis: Heparin GI Prophylaxis: Pepcid Prognosis is guarded
[2021-03-05] MEDS: HEPARIN SOD,PORK IN 0.45% NACL 25,000 UNIT in 0.45% NACL 1 250ML.BAG IV SCH (14:00)
[2021-03-05] MEDS: ASPIRIN 81 MG PO SCH (21:09)
[2021-03-05] MEDS ORDERED: SODIUM CHLORIDE 0.9% 1,000 ML in EMPTY BAG 1 BAG IV ONE (23:00)
[2021-03-06] MEDS: CLOPIDOGREL 75 MG TAB PO SCH (06:08)
[2021-03-06] MEDS: MULTIVITAMINS, THERA 1 EACH TAB PO SCH (06:08)
[2021-03-06] MEDS: ISOSORBIDE MONONITRATE ER 30 MG TAB.ER.24H PO SCH (06:09)
[2021-03-06] MEDS: amLODIPine 5 MG TAB PO SCH (06:09)
[2021-03-06] MEDS: PANTOPRAZOLE 40 MG TABLET PO SCH (06:09)
[2021-03-06 06:11] LABS: Glucose,Whole Blood 93 mg/dL (75-99)
[2021-03-06] MEDS: FAMOTIDINE 20 MG/2 ML VIAL IV SCH (06:11)
[2021-03-06] MEDS ORDERED: HEPARIN SODIUM,PORCINE 10,000 UNIT in SODIUM CHLORIDE 0.9% 1,000 ML IRRIGATION PRN (07:00)
[2021-03-06] MEDS ORDERED: HEPARIN SODIUM,PORCINE 2,500 UNIT in SODIUM CHLORIDE 0.9% 250 ML IRRIGATION PRN (07:00)
[2021-03-06] MEDS ORDERED: ATORVASTATIN 80 MG TAB PO ONE (07:00)
[2021-03-06] MEDS ORDERED: ASPIRIN 325 MG TAB PO ONE (07:00)
[2021-03-06] MEDS ORDERED: LIDOCAINE 1% INJ 10MG/ML (20 ML MDV) ONE (07:06)
[2021-03-06] MEDS ORDERED: HEPARIN SODIUM 1,000 UN/ML (10ML VL) ONE (07:07)
[2021-03-06] MEDS ORDERED: VERAPAMIL 2.5 MG/ML 2 ML AMP ONE (07:07)
[2021-03-06] MEDS ORDERED: fentaNYL (PF) 50 MCG/ML 2 ML AMP ONE (07:07)
[2021-03-06] MEDS ORDERED: IV FLUID CONTINUATION 1,000 ML IV ONE (07:12)
[2021-03-06] MEDS ORDERED: fentaNYL (PF) 50 MCG/ML 2 ML AMP IV ONE (07:43)
[2021-03-06] MEDS ORDERED: LIDOCAINE 1% INJ 10MG/ML (20 ML MDV) SQ ONE (07:47)
[2021-03-06] MEDS ORDERED: MIDAZOLAM 2 MG/2 ML VIAL IV ONE (07:48)
[2021-03-06] MEDS ORDERED: IOPAMIDOL-370 125ML BTL INJ ONE (08:11)
[2021-03-06] MEDS ORDERED: IOPAMIDOL-370 50ML BTL INJ ONE (08:12)
[2021-03-06] MEDS ORDERED: RX INFO: IV CONTRAST WAS GIVEN 1 EACH MISC MISCELLANE PRN (08:23)
[2021-03-06] MEDS ORDERED: SODIUM CHLORIDE 0.9% 1,000 ML IV SCH (08:30)
--- NOTE | 2021-03-06 09:07 | CC ---
CARDIAC CATHETERIZATION REPORT Mr. Lai is a 50-year-old male with known history of coronary artery disease status post coronary artery bypass grafting in 2013, subsequent multiple stenting of the LAD, who presented with symptoms of chest discomfort reminding him of his angina pectoris. His cardiac enzymes were unremarkable. In view of his presenting symptoms and recurrent pain, recommendation made regarding cardiac catheterization. The procedure as well as the risks and the complications were discussed with the patient who is in full understanding and agreement. PROCEDURE: Patient was brought to builder's labourer in the fasting semi-sedated state after receiving fentanyl, Benadryl, and achieving moderate conscious sedated state. Using Xylocaine anesthesia and Seldinger technique, a 6-Tongan sheath was introduced in the right femoral artery. Selective right and left coronary angiography performed 6-Tongan 4 bend right ptosis catheter. Multiple views of the coronary artery including hemiaxial views were obtained. The right Camille catheter was used to cross the aortic valve. The left ventricular end-diastolic pressure was calculated. Following that, the radial bypass graft to the second obtuse marginal branch was cannulated using the 6-Tongan right Camille catheter images of the grafts were obtained. Following that, a 6-Tongan tight pigtail catheters was introduced in the ascending aorta. An aortogram in the SALVADOREAN view was performed. Following that, the saphenous vein graft to the diagonal branch and the obtuse marginal branch 1 was cannulated using a 6-Tongan left coronary bypass catheter. Multiple views of the grafts were obtained. Following that, catheter and sheath were removed. Hemostasis was obtained with deployment of Angio-Seal. There was no complication, patient is returned to his room in stable condition. FINDINGS: 1. LEFT MAIN: This is a large-sized vessel, bifurcating into left circumflex, and left main coronary artery has no evidence of high-grade stenosis. 2. LEFT ASCENDING FEMORAL ARTERY: This vessel has a mild has a long segment of stented area in the proximal mid segment. The stented segment is patent there is about 10- 20 percent plaque in the mid stented segment. The rest of the vessel has no high- grade stenosis. 3. RIGHT CORONARY ARTERY: This is a large dominant vessel bifurcating into PDA and posterolateral segment and branches. The right coronary artery distally has a 20% plaque. The rest of the vessel has no high-grade stenosis. 4. LEFT RADIAL ARTERY TO THE SECOND OBTUSE MARGINAL BRANCH: The proximal distal anastomotic sites are patent. The flow into the obtuse marginal branch is brisk. There is no evidence of obstructive disease. 5. SAPHENOUS VEIN GRAFT TO THE DIAGONAL BRANCH AND FIRST OBTUSE MARGINAL BRANCH: The proximal distal anastomotic sites are patent. This is a widely complication graft. Both branches are patent. The flow in both branches is brisk. There is no evidence of significant obstructive disease. AORTOGRAM: Aortogram was performed in the 30 degree SALVADOREAN view and revealed normal appearance of the ascending aorta with no significant aortic regurgitation. LEFT VENTRICULOGRAM: Left ventriculogram is not performed. HEMODYNAMICS: There was no gradient across the aortic valve. The ventricle end-diastolic pressure 10- 12 mmHg. CONCLUSION: 1. Chronically occluded left circumflex. 2. Patent stented segment to the LAD with mild intimal in-stent restenoses. 3. Mild disease in the distal right coronary artery. 4. Patent radial artery to the second obtuse marginal branch. 5. Patent saphenous vein graft with a Y configuration to the diagonal branch and to the obtuse marginal branch 1. 6. Normal appearance of the ascending aorta. 7. Normal left ventricular end-diastolic pressure. RECOMMENDATION: In view of finding anatomy, I recommend continue medical therapy with aggressive coronary risk modifications that have been initiated. Those findings and recommendations were discussed with the patient and his family and they are in full understanding and agreement. Duration of sedation is 26 minutes. MMODL / IJN: [id number] /
[2021-03-06] MEDS: RANOLAZINE 500 MG TAB.ER.12H PO SCH (10:01)
[2021-03-06 14:22] VITALS: BP 107/68; PULSE 55; RESP 16; TEMP 97.8
[2021-03-06] MEDS: HEPARIN SOD,PORK IN 0.45% NACL 25,000 UNIT in 0.45% NACL 1 250ML.BAG IV SCH (16:06)
[2021-03-06] MEDS ORDERED: FAMOTIDINE 20 MG TAB PO SCH (21:00)
--- NOTE | 2021-03-07 00:31 | P.DS ---
Providers Date of admission: 03/05/21 10:10 Attending physician: Nigel Matthews MD Consults: 03/04/21 14:13 Consult Physician Urgent Consulting Provider: [facility] Consult Reason/Comments: Unstable angina Do you want consulting provider notified?: Yes Primary care physician: Venu Rodriguez MD Hospital Course: Diagnoses: Chest pain, cardiac cath showed minimal disease and chronic changes. Methods Analyst recommended continue conservative treatment and follow-up outpatient. Chest pain resolved completely prior to discharge History of extensive coronary artery disease status post CABG in 4 stents Hyperlipidemia Hospital course: This is a pleasant 50 is old male with past medical history for significant coronary artery disease status post CABG and 4 stents, last stent was 1.5 years ago. Hyperlipidemia, his shank tapper is Dr. Phani Mauricio , and his PCP is Dr. Yesenia Mcintosh. Presents with chest pain of one-day duration. Troponin are negative. Echocardiogram showed ejection fraction of 55-60% His shank tapper is Dr[facility] Mauricio @[facility] but his medical insurance provider did not agree for the transport So patient has been evaluated and underwent cardiac cath by our shank tapper Dr. lugo recommended cardiac cath: Showing chronically occluded left circumflex, patent LAD with mild in-stent restenosis, mild disease in the distal right coronary artery. Please refer to the cardiac cath report for more details Because of this Dr. Ontiveros recommended to continue with conservative management and follow-up in one week The day after the cardiac cath his chest pain is completely resolved 0/10, no other symptoms. Denies dyspnea, no change in urine or bowel habits. No fever. Patient was eager to go home today. Patient was cleared for discharge by shank tapper Patient was instructed to monitor his catheter site in the right groin for bleeding or bruise or hematoma and he agrees Methods Analyst recommended for patient to resume his home medications of aspirin, Plavix and he did not want a prescription for his home medications Problems and management plan were discussed with the patient and he verbalized understanding and acceptance Patient was found stable and can be discharged home however he needs follow-up as an outpatient. Patient was instructed to follow up with PCP within one week and patient agrees Patient also was instructed to follow up with Dr. Ontiveros in one week and he agrees to call and make appointment Patient also was instructed to follow up with his shank tapper Dr. Mauricio in 1-2 weeks and he agrees Physical exam Gen: patient is a AAOx3, no distress CVS: S1-S2, RRR, no murmur Lungs: B/L CTA, no wheezing Abdomen: soft, no distention, no tenderness, positive bowel sounds Extremity: no leg edema or induration Time spent more than 35 minutes Plan - Discharge Summary Discharge Rx Participant: Yes New Discharge Prescriptions: Continue Multivitamin [Men's Multi-Vitamin] 1 tab PO DAILY Metoprolol Tartrate [Lopressor] 12.5 mg PO BID amLODIPine [Norvasc] 5 mg PO DAILY Glucosamine-Chondr 500-400Mg 1 tab PO DAILY Evolocumab [Repatha Syringe] 140 mg SQ Q14D Apixaban [Eliquis] 5 mg PO BID Ranolazine [Ranexa] 1,000 mg PO BID Omeprazole 40 mg PO DAILY Aspirin EC [Ecotrin Low Dose] 81 mg PO HS Nitroglycerin Sl Tabs [Nitrostat] 0.4 mg SL Q5M PRN PRN Reason: Chest Pain Clopidogrel Bisulfate [Plavix] 75 mg PO DAILY Discontinued Cetirizine HCl [Zyrtec] 10 mg PO Q48H Discharge Medication List Multivitamin [Men's Multi-Vitamin] 1 tab PO DAILY 01/08/14 [History] Metoprolol Tartrate [Lopressor] 12.5 mg PO BID 01/09/14 [History] Apixaban [Eliquis] 5 mg PO BID 08/11/18 [History] Evolocumab [Repatha Syringe] 140 mg SQ Q14D 08/11/18 [History] Glucosamine-Chondr 500-400Mg 1 tab PO DAILY 08/11/18 [History] amLODIPine [Norvasc] 5 mg PO DAILY 08/11/18 [History] Aspirin EC [Ecotrin Low Dose] 81 mg PO HS 03/04/21 [History] Clopidogrel Bisulfate [Plavix] 75 mg PO DAILY 03/04/21 [History] Nitroglycerin Sl Tabs [Nitrostat] 0.4 mg SL Q5M PRN 03/04/21 [History] Omeprazole 40 mg PO DAILY 03/04/21 [History] Ranolazine [Ranexa] 1,000 mg PO BID 03/04/21 [History] Follow up Appointment(s)/Referral(s): Emily Ontiveros MD [STAFF PHYSICIAN] - 1 Week Nonstaff,Physician [REFERRING] - 1-2 days Patient Instructions/Handouts: *Surgery [facility] - After Heart Catheterization - Product Development Scientist Instructions Activity/Diet/Wound Care/Special Instructions: heart healthy diet activity is restricted till you see your doctor monitor you groin at catheter site , if any bleeding, swelling , large bruise to call 911 and come to Emergency room f/u with your primary care doctor and shank tapper in one week , please call to make appointment, you have the contact information as your informed the medical team we recommend to check your blood test with your doctor including complete blood count and basic metabolic panel Discharge Disposition: HOME SELF-CARE
[2021-03-11] MEDS ORDERED: Evolocumab [Repatha Syringe] 140 MG/ML Syringe SQ SCH (09:00)
== END 2021-03-06 19:12 | disposition home or self-care (01) ==
LOC: EC 11:17 → 6NMEDSUR 14:15 → OBSVTOIN 03-05 10:10 → INTOOBSV 03-05 10:10 → UNDODISIN 03-06 19:12
PROVIDERS: ADMIT Internal Medicine; ATTEND Internal Medicine
DX: I25.110 Atherosclerotic heart disease of native coronary artery with unstable angina pectoris (principal); I25.2 Old myocardial infarction; E78.5 Hyperlipidemia, unspecified; I10 Essential (primary) hypertension; E78.00 Pure hypercholesterolemia, unspecified; Z79.82 Long term (current) use of aspirin; Z79.899 Other long term (current) drug therapy; Z79.01 Long term (current) use of anticoagulants; Z79.02 Long term (current) use of antithrombotics/antiplatelets; Z86.718 Personal history of other venous thrombosis and embolism; Z82.49 Family history of ischemic heart disease and other diseases of the circulatory system
CPT/HCPCS: 96376 ×3; 96375; 96374; 99291; 36415; 93005; 93306; 93459; 80061; 80053; 83735; 84484; 85025; 85610; 85730 ×3; 71046; G0378 ×3; C1769 ×2; C1760; C1894 ×2; J2250; J2001; J3010; J1644 ×3; Q9967 ×2